=== PATIENT | female | born 1990 ===

== ENCOUNTER 2022-09-14 05:40 | Inpatient (IN) ==
[2022-09-14] MEDS ORDERED: LIDOCAINE 1% LOCAL 20 ML VIAL INFIL PRN (06:03)
[2022-09-14] MEDS ORDERED: OXYTOCIN 30 UNITS/500 ML BAG IV PRN ×3 (06:03→15:37)
[2022-09-14] MEDS ORDERED: Patient's ALLERGY Info needs ENTERED SCH (06:15)
[2022-09-14] MEDS ORDERED: PENICILLIN G POTASSIUM 6 MU in DEXTROSE 5% 250 ML IV STA (06:17)
[2022-09-14] MEDS ORDERED: fentaNYL citrate 100 MCG/2 ML VIAL ONE (06:20)
[2022-09-14] MEDS ORDERED: BUPIVACAINE 0.25% 30 ML VIAL ONE (06:20)
[2022-09-14] MEDS ORDERED: SODIUM CHLORIDE 0.9% INJ 10 ML VIAL ONE (06:20)
[2022-09-14] MEDS ORDERED: fentaNYL 2MCG/ML ROPIVACAINE 1.25MG/ML 100 ML BAG EPI ONE (06:20)
[2022-09-14] MEDS ORDERED: ePHEDrine sulfate 50 MG/ML AMP ONE (06:20)
[2022-09-14] MEDS ORDERED: LIDOCAINE 2%/EPINEPHRINE 1:200,000 20 ML SDV ONE (06:20)
[2022-09-14] MEDS: LACTATED RINGER'S 1,000 ML IV PRN ×3 (06:26→12:52)
[2022-09-14 06:39] LABS: Hematocrit (blood only) 38.5 % (34.1-44.9); Hemoglobin 13.4 g/dl (12.0-16.0); Mean Corpuscular Hemoglobin 30.1 pg (25.0-34.0); Mean Corpuscular Hgb Conc 34.8 g/dL (32.0-36.0); Mean Corpuscular Volume 86.5 fL (80.0-100.0); Mean Platelet Volume 10.6 fL (9.4-12.3); Platelet Count 242 K/uL (130-400); RDW Coefficient of Variation 13.1 % (11.5-14.5); RDW Standard Deviation 40.6 fL (36.4-46.3); Red Blood Count 4.45 M/uL (3.93-5.22); White Blood Count 12.84 K/ul (4.8-10.8)
--- NOTE | 2022-09-14 06:41 | History & Physical Report ---
Date of Service September 14, 2022 Assessment & Plan Admission and Anticipated Discharge Date Admission Date: September 14, 2022 History of Present Illness Chief Complaint: term in labor Primary Care Provider: NO PCP 32 F [id number] at 40.4 weeks presents in active labor. Patient was sent here by tenoner operator from [place]. GBS is positive. Allergies Allergy/AdvReac Type Severity Reaction Status Date / Time No Known Allergies Allergy Verified 09/14/22 06:14 Home Medications Medication Instructions Recorded Confirmed Type doxylamine succinate 25 mg tablet 25 mg PO HS PRN sleep 09/14/22 09/14/22 History (Unisom (doxylamine)) vits no.130-ferrous fum 1 tab PO DAILY 09/14/22 09/14/22 History 27 mg iron-folic acid 800 mcg tablet ( Vitamin) Patient History Medical History GBS carrier History of gestational hypertension Rubella non-immune status, antepartum Surgical History No history of previous surgery OB History x3 COLD MEAT CHEF History neg Review of Systems All systems reviewed & are unremarkable except as noted in HPI & below Physical Exam Constitutional: WD/WN, vitals as above Eyes: PERRL, conjunctivae normal, anicteric sclerae Respiratory: normal respiratory effort, lungs clear to auscultation Cardiovascular: RRR, no murmur, no edema Gastrointestinal (Abdomen): normal bowel sounds, soft, nontender, no hepatosplenomegaly Musculoskeletal: Extremities: extremities normal to inspection Skin: no rashes, warm and dry Psychiatric: A+Ox3, euthymic affect Genitourinary: Manual OB Exam: + cervical dilation 6 cm, + cervical effacement 80% and + station -2 OB Exam Monitor Tracing: + external FHT monitor used, + external uterine monitor used, + category I and + normal FHT variability bulging membranes Results & Data ([facility]) Vital Signs (Past 12 Hours) Vital Signs Pulse BP 09/14/22 05:58 109 H 122/80 Laboratory Results 09/14/22 06:30 WBC 12.84 H RBC 4.45 Hgb 13.4 Hct 38.5 MCV 86.5 MCH 30.1 MCHC 34.8 RDW Std Deviation 40.6 RDW Coeff of Yaron 13.1 Plt Count 242 MPV 10.6 Monitoring External Monitor Cat 1
--- NOTE | 2022-09-14 07:07 | Anesthesiology Consultation ---
Date of Service September 14, 2022 Assessment & Plan (1) Encounter for pre-operative examination: Chart Review Chart Review: Acceptable Risk for Labor Epidural History Height/Weight Height: 5 ft 2 in Weight: 82.554 kg Allergies Allergy/AdvReac Type Severity Reaction Status Date / Time No Known Allergies Allergy Verified 09/14/22 06:14 Medications Home Medications Medication Instructions Recorded Confirmed Last Taken doxylamine succinate 25 mg tablet 25 mg PO HS PRN sleep 09/14/22 09/14/22 09/13/22 (Unisom (doxylamine)) vits no.130-ferrous fum 1 tab PO DAILY 09/14/22 09/14/22 09/13/22 27 mg iron-folic acid 800 mcg tablet ( Vitamin) Active Medications Generic Name Dose Route Start Last Admin Trade Name Freq PRN Reason Stop Dose Admin Lactated Ringer's 1,000 mls @ 125 mls/hr 09/14/22 06:03 09/14/22 06:26 Lr IV 09/16/22 06:02 999 mls/hr .Q8H PRN Administration L&D Protocol Protocol Penicillin G Potassium 6 mu/ 262 mls @ 262 mls/hr 09/14/22 06:17 09/14/22 06:41 Dextrose IV 09/14/22 07:16 262 mls/hr NOW STA Administration Past Medical History Medical History GBS carrier History of gestational hypertension Rubella non-immune status, antepartum Past Surgical History Surgical History No history of previous surgery Social History Smoking Status: Never smoker Hx Alcohol Use: No Hx Substance Use: No substance use type: does not use Physical Exam Vital Signs Last Vital Signs Temp 36.8 C 09/14/22 06:18 Pulse 120 H 09/14/22 07:01 Resp 18 09/14/22 06:18 BP 116/64 09/14/22 07:00 Pulse Ox 98 09/14/22 07:01 Testing Laboratory Results 09/14/22 06:30
--- NOTE | 2022-09-14 08:22 | Obstetrical Progress Note ---
Date of Service September 14, 2022 Assessment & Plan Admission and Anticipated Discharge Date Admission Date: September 14, 2022 Subjective Patient is seen and reviewed her records and confirmed with her Came in active labor, received epidural for pain and now comfortable. GBS + Received 1st dose of AB FHR categ I Plan to AROM after 2nd dose of PCN All questions were answered. Results & Data ([facility]) Vital Signs (Past 12 Hours) Vital Signs Temp Pulse Resp BP Pulse Ox 09/14/22 06:18 36.8 C 18 09/14/22 08:19 90 97/62 L 09/14/22 08:16 93 H 98 09/14/22 08:11 96 H 98 09/14/22 08:06 91 H 99 09/14/22 08:04 96 H 91/60 L 09/14/22 08:01 91 H 99 09/14/22 07:56 90 99 09/14/22 07:51 92 H 100 09/14/22 07:49 85 20 96/57 L 09/14/22 07:46 84 100 09/14/22 07:47 99 H 100/61 09/14/22 07:45 90 20 99/60 L 09/14/22 07:43 89 20 94/54 L 09/14/22 07:41 100 09/14/22 07:41 99 H 09/14/22 07:41 98 H 20 103/62 09/14/22 07:39 98 H 95/57 L 09/14/22 07:36 94 H 99 09/14/22 07:37 96 H 20 92/56 L 09/14/22 07:35 90 20 98/61 L 09/14/22 07:33 93 H 97/59 L 09/14/22 07:31 109 H 20 93/57 L 99 09/14/22 07:29 120 H 109/58 L 09/14/22 07:27 101 H 20 94/54 L 09/14/22 07:26 98 09/14/22 07:26 107 H 09/14/22 07:26 104 H 20 105/63 09/14/22 07:23 90 127/83 09/14/22 07:21 105 H 20 131/88 99 09/14/22 07:19 97 H 20 130/79 09/14/22 07:16 131 H 83 L 09/14/22 07:11 123 H 98 09/14/22 07:06 105 H 97 09/14/22 07:01 120 H 98 09/14/22 07:00 127 H 116/64 09/14/22 06:56 107 H 96 09/14/22 06:51 116 H 98 09/14/22 06:46 121 H 98 09/14/22 05:58 109 H 122/80
[2022-09-14] MEDS: PENICILLIN G POTASSIUM 3 MU in DEXTROSE 5% 100 ML IV PRN ×2 (10:14→14:29)
--- NOTE | 2022-09-14 12:33 | Obstetrical Progress Note ---
Date of Service September 14, 2022 Assessment & Plan Admission and Anticipated Discharge Date Admission Date: September 14, 2022 Subjective Patient has received 2 doses of PCN. FHR categ I Ctxs spaced out VE; 7-8/ 80%/-1, bulging bag, AROM'ed clear fluid Augment with low dose Oxytocin Continue to monitor Results & Data ([facility]) Vital Signs (Past 12 Hours) Vital Signs Temp Pulse Resp BP Pulse Ox 09/14/22 06:18 36.8 C 18 09/14/22 12:31 84 97 09/14/22 12:26 79 98 09/14/22 12:21 84 97 09/14/22 12:19 91 H 123/71 09/14/22 12:16 107 H 99 09/14/22 12:11 93 H 97 09/14/22 12:06 97 H 97 09/14/22 12:04 101 H 113/70 09/14/22 12:01 96 H 97 09/14/22 11:56 101 H 97 09/14/22 11:51 98 H 97 09/14/22 11:50 86 20 111/77 09/14/22 11:46 86 98 09/14/22 11:41 96 H 98 09/14/22 11:36 94 H 98 09/14/22 11:34 100 H 107/72 09/14/22 11:31 90 98 09/14/22 11:26 112 H 98 09/14/22 11:21 94 H 98 09/14/22 11:19 97 H 113/70 09/14/22 11:16 91 H 99 09/14/22 11:11 103 H 100 09/14/22 11:00 20 09/14/22 11:00 36.9 C 20 09/14/22 11:06 87 109/75 97 09/14/22 11:01 105 H 100 09/14/22 10:56 99 H 99 09/14/22 10:51 96 H 98 09/14/22 10:49 89 117/73 09/14/22 10:46 90 96 09/14/22 10:41 87 97 09/14/22 10:36 84 95 09/14/22 10:34 90 20 122/76 09/14/22 10:31 86 96 09/14/22 10:26 81 96 09/14/22 10:21 92 H 95 09/14/22 10:19 78 115/71 09/14/22 10:16 88 97 09/14/22 10:11 81 97 09/14/22 10:06 88 97 09/14/22 10:05 82 119/77 09/14/22 10:01 87 99 09/14/22 09:50 20 09/14/22 09:50 20 09/14/22 09:56 79 97 09/14/22 09:51 80 97 09/14/22 09:49 85 114/74 09/14/22 09:46 91 H 97 09/14/22 09:41 81 97 09/14/22 09:36 79 96 09/14/22 09:35 36.5 C 75 20 121/78 09/14/22 09:31 90 97 09/14/22 09:26 93 H 98 09/14/22 09:21 99 09/14/22 09:21 99 H 09/14/22 09:21 85 118/79 09/14/22 09:16 103 H 99 09/14/22 09:11 107 H 99 09/14/22 09:06 120 H 98 09/14/22 09:04 105 H 104/65 09/14/22 09:01 99 H 99 09/14/22 08:56 120 H 99 09/14/22 08:51 100 09/14/22 08:51 98 H 09/14/22 08:51 90 101/59 L 09/14/22 08:46 92 H 100 09/14/22 08:41 98 H 99 09/14/22 08:36 104 H 99 09/14/22 08:34 90 97/62 L 09/14/22 08:31 99 H 96 09/14/22 08:26 99 H 97 09/14/22 08:21 91 H 98 09/14/22 08:19 90 20 97/62 L 09/14/22 08:16 93 H 98 09/14/22 08:11 96 H 98 09/14/22 08:06 91 H 99 09/14/22 08:04 96 H 91/60 L 09/14/22 08:01 91 H 99 09/14/22 07:56 90 99 09/14/22 07:51 92 H 100 09/14/22 07:49 85 20 96/57 L 09/14/22 07:46 84 100 09/14/22 07:47 99 H 100/61 09/14/22 07:45 90 20 99/60 L 09/14/22 07:43 89 20 94/54 L 09/14/22 07:41 100 09/14/22 07:41 99 H 09/14/22 07:41 98 H 20 103/62 09/14/22 07:39 98 H 95/57 L 09/14/22 07:36 94 H 99 09/14/22 07:37 96 H 20 92/56 L 09/14/22 07:35 90 20 98/61 L 09/14/22 07:33 93 H 97/59 L 09/14/22 07:31 109 H 20 93/57 L 99 09/14/22 07:29 120 H 109/58 L 09/14/22 07:27 101 H 20 94/54 L 09/14/22 07:26 98 09/14/22 07:26 107 H 09/14/22 07:26 36.5 C 104 H 20 105/63 09/14/22 07:23 90 127/83 09/14/22 07:21 105 H 20 131/88 99 09/14/22 07:19 97 H 20 130/79 09/14/22 07:16 131 H 83 L 09/14/22 07:11 123 H 98 09/14/22 07:06 105 H 97 09/14/22 07:01 120 H 98 09/14/22 07:00 127 H 116/64 09/14/22 06:56 107 H 96 09/14/22 06:51 116 H 98 09/14/22 06:46 121 H 98 09/14/22 05:58 109 H 122/80
[2022-09-14] MEDS ORDERED: NALOXONE HCL 1 MG in SODIUM CHLORIDE 0.9% 1000ML 1,000 ML IV PRN (13:26)
[2022-09-14] MEDS ORDERED: NALOXONE HCL 0.4 MG/1 ML VIAL/CARP IV PRN (13:26)
[2022-09-14] MEDS ORDERED: ONDANSETRON INJ 2 MG/ML 2 ML VIAL IV PRN (13:26)
[2022-09-14] MEDS: fentaNYL 2MCG/ML ROPIVACAINE 1.25MG/ML 100 ML BAG EPI PRN ×2 (13:26→13:51)
[2022-09-14] MEDS ORDERED: ePHEDrine sulfate 50 MG/ML AMP IV PRN (13:26)
[2022-09-14] MEDS ORDERED: NURSING L&D Epidural Breakthrough Pain Update ONE (13:44)
[2022-09-14] MEDS ORDERED: HYDROCORTISONE ACETATE 25 MG SUPP PR PRN (15:37)
[2022-09-14] MEDS ORDERED: bisacodyL 10 MG SUPP PR PRN (15:37)
[2022-09-14] MEDS ORDERED: DIPHTHERIA/TETANUS/PERTUSSIS 0.5 ML SYR/VIAL IM ONE (15:37)
[2022-09-14] MEDS ORDERED: ACETAMINOPHEN 325 MG TAB PO PRN (15:37)
[2022-09-14] MEDS ORDERED: BENZOCAINE 20% AER SPR 82.5 GM CAN EXT PRN (15:37)
[2022-09-14] MEDS ORDERED: oxyCODONE/ACETAMINOPHEN 5mg/325mg TAB PO PRN (15:37)
[2022-09-14] MEDS ORDERED: MEASLES, MUMPS & RUBELLA VIRUS VIAL SQ ONE (15:37)
--- NOTE | 2022-09-14 15:42 | Delivery Summary ---
Vaginal Delivery Summary Date of Service September 14, 2022 Vaginal Delivery Summary Patient was found to be fluid dilated and desire to push. She pushed for about an hour and delivered the head without difficulty. The shoulders were delivered with minimal traction, the baby was handed off to the mother where mouth and nose were suctioned and the cord was clamped times and cut. Then the cord blood was obtained. Vagina and perineum were checked for lacerations. There was a only a small first-degree laceration at the posterior fourchette skin, the rest of the vagina and labia were intact. This was repaired with 3-0 Vicryl in a running fashion, excellent hemostasis was achieved. Then the placenta was found to be in the vagina, delivered spontaneously as intact and complete. The uterus was explored and the fundus was found to be firm and contracted and the lower segment was c leared of all clots and debris's. EBL was 100 mL. Mom and baby tolerated procedure well, baby was a viable male infant, delivered at 1517 p.m. and Apgars were 8/9. The weight is pending. No complications happened and I was present during whole procedure. At the end of the procedure the sponge needle instrument count was correct x2.
--- NOTE | 2022-09-14 16:12 | Anesthesia Procedure Note ---
Date of Service September 14, 2022 Anesthesia Post Epidural Note Vital Signs Vital Signs: Temp Pulse Resp BP Pulse Ox 36.7 C 90 20 126/65 95 09/14/22 15:30 09/14/22 16:04 09/14/22 15:45 09/14/22 16:04 09/14/22 15:34 Notes Mental Status: alert / awake / arousable and participated in evaluation Nausea / Vomiting: adequately controlled Pain: adequately controlled Airway Patency, RR, SpO2: stable & adequate BP & HR: stable & adequate Hydration State: stable & adequate Neuraxial Anesthesia: was administered and sensory block is resolving Anesthetic Complications: no major complications apparent Epidural: Removed without complications and With tip intact
[2022-09-14] MEDS: METHYLERGONOVINE MALEATE 0.2 MG TAB PO SCH ×3 (16:23→21:03)
[2022-09-14] MEDS: IBUPROFEN 600 MG TAB PO PRN ×2 (16:25→21:02)
[2022-09-14] MEDS: DOCUSATE SODIUM 100 MG CAP PO SCH (21:02)
[2022-09-15] MEDS: METHYLERGONOVINE MALEATE 0.2 MG TAB PO SCH ×2 (01:28→04:00)
[2022-09-15] MEDS: IBUPROFEN 600 MG TAB PO PRN ×3 (01:29→14:01)
[2022-09-15 07:01] LABS: Hematocrit (blood only) 35.8 % (34.1-44.9); Hemoglobin 12.1 g/dl (12.0-16.0); Mean Corpuscular Hemoglobin 29.8 pg (25.0-34.0); Mean Corpuscular Hgb Conc 33.8 g/dL (32.0-36.0); Mean Corpuscular Volume 88.2 fL (80.0-100.0); Platelet Count 195 K/uL (130-400); RDW Coefficient of Variation 13.4 % (11.5-14.5); Red Blood Count 4.06 M/uL (3.93-5.22); White Blood Count 11.42 K/ul (4.8-10.8)
--- NOTE | 2022-09-15 07:25 | Obstetrical Progress Note ---
Date of Service September 15, 2022 Assessment & Plan (1) Normal course: Continue routine care Will discontinue p.o. Methergine at this time Plan to discharge home later today if baby is discharged, otherwise will be tomorrow morning discharge Patient voiced understanding and agreement with the plan. All questions answered in the room Subjective Ambulation: ambulating normally Voiding: no voiding problems Passing Gas:: Yes Diet Tolerance:: regular diet Lochia:: Moderate Feeding Type:: breast feeding Current Pain Level(1-10): 1 Doing well, would like to go today if baby is discharged. Refusing methergine PO No other complaints Physical Exam Constitutional WD/WN, vitals as above Respiratory normal respiratory effort, lungs clear to auscultation Cardiovascular RRR, no murmur, no edema Gastrointestinal (Abdomen) normal bowel sounds, soft, nontender, no hepatosplenomegaly Results & Data ([facility]) Vital Signs (Past 12 Hours) Vital Signs Temp Pulse Resp BP O2 Del Method 09/15/22 04:00 36.9 C 72 18 120/70 Room Air 09/15/22 00:00 36.6 C 72 18 112/67 Room Air 09/14/22 20:00 36.7 C 80 18 128/67 Room Air Laboratory Results H/H 12.1/35.8%
[2022-09-15] MEDS ORDERED: FERROUS SULFATE 325 MG TAB PO SCH (08:00)
[2022-09-15] MEDS ORDERED: PRENATAL VITAMIN 1 TAB PO SCH (08:00)
[2022-09-15] MEDS: DOCUSATE SODIUM 100 MG CAP PO SCH (08:06)
[2022-09-15] MEDS ORDERED: bisacodyL 5 MG TABEC PO SCH (20:00)
== END 2022-09-15 16:15 | disposition home or self-care (01) | DRG 807 ==
LOC: OPB 05:40 → 4S1 05:45 → 4E2 18:05